=== PATIENT | male | born 1985 | race Caucasian/White ===

== ENCOUNTER 2022-02-12 14:10 | Emergency (ER) | payer BC ==
[2022-02-12] MEDS ORDERED: Lidocaine 1% 5 ML VIAL INJECT ONE (14:50)
[2022-02-12] MEDS ORDERED: Bacitracin Oint 1 GM U/D Packet TOP ONE (14:50)
[2022-02-12] MEDS ORDERED: ceFAZolin 1 GM Vial IM ONE (16:42)
== END 2022-02-12 17:23 | disposition home or self-care (01) ==
LOC: JP.ED 14:10
DX: S92.531B Displaced fracture of distal phalanx of right lesser toe(s), initial encounter for open fracture (principal); W20.8XXA Other cause of strike by thrown, projected or falling object, initial encounter; Y99.0 Civilian activity done for income or pay
CPT/HCPCS: 73660-26-T8; 73660-T8; 96372; 99283

== ENCOUNTER 2022-09-12 14:59 | Emergency (ER) | payer BC ==
[2022-09-12] MEDS ORDERED: methylPREDNISolone Sodium Succinate 125 MG/2 ML SDV IVPUSH ONE (15:44)
[2022-09-12] MEDS ORDERED: Famotidine 20 MG/2 ML SDV IVPUSH ONE (15:44)
== END 2022-09-12 17:25 | disposition home or self-care (01) ==
LOC: JP.ED 14:59
DX: T78.2XXA Anaphylactic shock, unspecified, initial encounter (principal); F17.210 Nicotine dependence, cigarettes, uncomplicated
CPT/HCPCS: 96374; 96375; 99285; J2930; J3490; 99284